=== PATIENT | male | born 1945 | race Caucasian/White ===

== ENCOUNTER 2019-08-12 08:07 | Emergency (ER) | payer MEDICAID, MEDICARE, OTHER ==
[~2019-08-12] VITALS: Ht 182.9 cm; Wt 109.6 kg
[2019-08-12] MEDS ORDERED: FLOM0.4C39 PO (08:14)
[2019-08-12] MEDS ORDERED: LIDOCAINE 2% 5ML JELLY UROJET TOP ONE (08:30)
[2019-08-12] MEDS ORDERED: ASPI81TA85 PO (09:13)
[2019-08-12 09:54] LABS: BASO % 0.2 % (0.0-1.0); HEMATOCRIT 43.1 % (42.0-52.0); HEMOGLOBIN 13.8 g/dl (13.5-17.5); LYMPH # 0.5 10^3/uL (1.5-5.0); LYMPH % 4.4 % (24.0-44.0); MEAN CORPUSCULAR HEMOGLOBIN 29.9 pg (27.0-33.0); MEAN CORPUSCULAR VOLUME 93.5 fl (80.0-96.0); MONO # 0.6 10^3/uL (0.0-0.8); MONO % 5.2 % (0.0-5.0); NEUTROPHILS # 9.7 10^3/uL (1.5-8.5); PLATELET COUNT, AUTOMATED 135 10^3/uL (150-450); RED BLOOD COUNT 4.61 10^6/uL (4.30-6.10); WHITE BLOOD COUNT 10.8 10^3/uL (4.0-10.0)
[2019-08-12 10:32] LABS: ALBUMIN 3.5 GM/DL (3.2-5.2); ALT/SGPT 23 U/L (12-78); BILIRUBIN,TOTAL 0.8 MG/DL (0.2-1.0); BLOOD UREA NITROGEN 17 MG/DL (7-18); CALCIUM LEVEL 8.4 MG/DL (8.8-10.2); CARBON DIOXIDE LEVEL 24 MEQ/L (21-32); CHLORIDE LEVEL 105 MEQ/L (98-107); CREATININE FOR GFR 0.73 MG/DL (0.70-1.30); GLOMERULAR FILTRATION RATE > 60.0 (>42); GLUCOSE, FASTING 104 MG/DL (70-100); POTASSIUM SERUM 4.2 MEQ/L (3.5-5.1); SODIUM LEVEL 137 MEQ/L (136-145); TOTAL PROTEIN 7.2 GM/DL (6.4-8.2)
[2019-08-12] MEDS ORDERED: ELIQ5TAB PO (11:00)
[2019-08-12] MEDS ORDERED: APIXABAN 5 MG TAB (ELIQUIS) PO ONE (11:15)
[2019-08-12 11:21] VITALS: BP 132/70
--- NOTE | 2019-08-12 12:30 | ECGEPIP ---
[facility] - ED Test Date: 2019-08-12 Pat Name: LEANNE TURK Department: Room: - Gender: Male Guest Relations Coordinator: : 1945 Requested By: ELLIOTT ROSA Order Number: [id number] Reading MD: Deborah Herndon Measurements Intervals [place] Rate: 88 P: [place]: 0 QRS: -8 QRSD: 99 T: -30 QT: 375 QTc: 455 Interpretive Statements ATRIAL FIBRILLATION INFERIOR MYOCARDIAL INFARCTION, OF INDETERMINATE AGE NSTTW abnormalities NO PRIOR Electronically Signed on 08-12-2019 12:30:02 EDT by Deborah Herndon
== END 2019-08-12 11:30 | disposition home or self-care (01) ==
LOC: M ED 08:07
DX: R33.9 Retention of urine, unspecified (principal); I48.91 Unspecified atrial fibrillation; Z91.19 Patient's noncompliance with other medical treatment and regimen; N40.1 Benign prostatic hyperplasia with lower urinary tract symptoms; N52.9 Male erectile dysfunction, unspecified; I10 Essential (primary) hypertension; E78.2 Mixed hyperlipidemia; Z95.5 Presence of coronary angioplasty implant and graft; Z88.8 Allergy status to other drugs, medicaments and biological substances; Z79.01 Long term (current) use of anticoagulants; Z79.899 Other long term (current) drug therapy

== ENCOUNTER → 2019-09-16 | Outpatient (REF) | payer OTHER ==
[~2019-09-16] MED LIST: ASPI81TA85 PO; CIDA500T2 PO; ELIQ5TAB PO; FLOM0.4C39 PO; SULF1TAB93 PO; VITA-199 PO; VITA500C24 PO
== END ==
LOC: M SMT 16:40
PROVIDERS: ATTEND Urology
DX: Z01.818 Encounter for other preprocedural examination (principal); R33.9 Retention of urine, unspecified

== ENCOUNTER → 2019-09-19 | Outpatient (CLI) | payer OTHER | LOC: M LABSMTC 10:39 | PROVIDERS: ATTEND Anesthesiology | DX: Z01.818 Encounter for other preprocedural examination (principal); Z11.59 Encounter for screening for other viral diseases; Z03.818 Encounter for observation for suspected exposure to other biological agents ruled out | CPT/HCPCS: C9803; U0003 ==

== ENCOUNTER 2019-09-22 09:00 | Day surgery (SDC) | payer OTHER ==
[~2019-09-22] VITALS: Ht 182.9 cm; Wt 107.5 kg
[~2019-09-22 09:00] MED LIST changes: -SULF1TAB93 PO; +ceFAZolin SOD 2 GM in IV 1 EA IV ONE
[2019-09-22] MEDS ORDERED: MIDAZOLAM INJ 2MG/2ML VIAL (J2250 PER 1MG) As Ordered ONE (09:28)
[2019-09-22] MEDS ORDERED: fentaNYL 250 MCG/5 ML INJECTION (J3010) As Ordered ONE (09:29)
[2019-09-22] MEDS ORDERED: ePHEDrine SULFATE 25 MG/5 ML(5MG/ML) SYRINGE As Ordered ONE (09:30)
[2019-09-22] MEDS ORDERED: KETOROLAC 60 MG/2 ML VIAL As Ordered ONE (09:30)
[2019-09-22] MEDS ORDERED: ONDANSETRON 4MG/2ML VIAL As Ordered ONE (09:30)
[2019-09-22] MEDS ORDERED: LIDOCAINE 2% 100MG/5ML SDV (FOR ANES.) As Ordered ONE (09:30)
[2019-09-22] MEDS ORDERED: SUGAMMADEX SODIUM 500 MG/5 ML VIAL (BRIDION) As Ordered ONE (09:30)
[2019-09-22] MEDS ORDERED: propofoL 200 MG/20 ML VIAL As Ordered ONE (09:30)
[2019-09-22] MEDS ORDERED: PHENYLephrine HCL 500 MCG/5 ML (100MCG/ML) SYRINGE (J2370) As Ordered ONE (09:30)
[2019-09-22] MEDS ORDERED: ROCURONIUM BROMIDE 50 MG/5 ML VIAL As Ordered ONE ×2 (09:30→11:38)
[2019-09-22] MEDS ORDERED: dexameTHASONE 4 MG/ML 1ML VIAL (J1100 PER 1MG) As Ordered ONE (09:30)
[2019-09-22] MEDS ORDERED: VANCOMYCIN HCL 1,000 MG, VIAL MATE ADAPTER 1 EACH in D5W 250 ML IV ONE (09:45)
[2019-09-22] MEDS ORDERED: GENTAMICIN 80 MG in IV 1 EA IV ONE (09:45)
[2019-09-22] MEDS ORDERED: SULF1TAB93 PO (10:04)
[2019-09-22] MEDS ORDERED: ACETAMINOPHEN 1000MG 100ML IV BTL (OFIRMEV) (J0131 PER 10MG) As Ordered ONE (10:55)
[2019-09-22] MEDS ORDERED: FUROSEMIDE 100MG/10ML VIAL (J1940) As Ordered ONE (13:08)
--- NOTE | 2019-09-22 13:36 | ROOPDOC ---
[facility] Report Of Operation Report of Operation DATE OF PROCEDURE: 09/22/19 PREPROCEDURE DIAGNOSIS: Benign prostatic hyperplasia. POSTPROCEDURE DIAGNOSIS: Benign prostatic hyperplasia. PROCEDURE: Cystoscopy, button transurethral electrovaporization of the prostate. SURGEON: Allegra Gonzalez MD [employer] OPERATOR: None. ANESTHESIA: General. OPERATIVE INDICATIONS: This is a 74-year-old male with benign prostatic hyperplasia and urinary retention who was brought to the operating room today for treatment. DESCRIPTION OF PROCEDURE: The patient was brought to the operating room and general anesthesia was induced. Prophylactic antibiotics were infused. He was placed in the dorsal lithotomy position and prepped and draped in the usual sterile fashion. At this point, I advanced the resectoscope into the urethra and into the bladder. Of note, the patient had bilobar benign prostatic hyperplasia. I made note of the location of both ureteral orifices, as well as the verumontanum. At this point, I began vaporizing hyperplastic tissue circumferentially at the bladder neck. I then vaporized hyperplastic tissue on both lateral lobes. I kept doing this until there was a clear channel established. Once there was a clear channel established, hemostasis was obtained using the coagulation current. Once satisfied with hemostasis, the resectoscope was removed and an 18-Tajik Rice catheter was inserted into the bladder. The balloon was filled with 15 mL of sterile water and then the catheter was connected to gravity drainage. This marked the conclusion of the procedure. The patient was taken out of the dorsal lithotomy position, awakened from anesthesia and transported to the recovery room in stable condition. Estimated blood loss:25 mL. Complications: None. Specimens: None. PLAN: The patient will followup in the clinic in approximately 1 week for catheter removal and a voiding trial. ALLEGRA GONZALEZ MD September 22, 2019 13:36
[2019-09-22] MEDS ORDERED: ONDANSETRON 4MG/2ML VIAL IV PRN (14:00)
[2019-09-22] MEDS ORDERED: LR 1,000 ML IV SCH (14:00)
[2019-09-22] MEDS ORDERED: ACETAMINOPHEN TAB 650MG DOSE (2X325MG) PO PRN (14:00)
[2019-09-22] MEDS ORDERED: fentaNYL 100 MCG/2 ML INJECTION (J3010) IV PRN (14:00)
[2019-09-22] MEDS ORDERED: oxyCODONE 5MG TAB PO PRN (14:00)
[2019-09-22 14:55] VITALS: BP 147/81
== END 2019-09-22 15:48 | disposition home or self-care (01) ==
LOC: M SDC 09:00
PROVIDERS: ATTEND Urology
DX: N40.1 Benign prostatic hyperplasia with lower urinary tract symptoms (principal); I48.91 Unspecified atrial fibrillation; I25.2 Old myocardial infarction; G47.30 Sleep apnea, unspecified; Z79.01 Long term (current) use of anticoagulants; Z79.899 Other long term (current) drug therapy; Z98.61 Coronary angioplasty status; Z88.8 Allergy status to other drugs, medicaments and biological substances
CPT/HCPCS: 52601; J0131; J1100; J1580; J1885; J1940; J2250; J2370; J2405; J3010; J3370

== ENCOUNTER 2020-09-20 07:13 | Emergency (ER) | payer OTHER ==
[~2020-09-20] VITALS: Ht 182.9 cm; Wt 106.7 kg
[~2020-09-20 07:13] MED LIST changes: -ASPI81TA85 PO; +ASPI81TA86 PO; +BACTDSTA PO; -ceFAZolin SOD 2 GM in IV 1 EA IV ONE
[2020-09-20 08:27] LABS: HEMATOCRIT 47.4 % (42.0-52.0); HEMOGLOBIN 15.4 g/dl (13.5-17.5); MEAN CORPUSCULAR HEMOGLOBIN 30.7 pg (27.0-33.0); MEAN CORPUSCULAR HGB CONC 32.5 g/dl (32.0-36.5); MEAN CORPUSCULAR VOLUME 94.4 fl (80.0-96.0); PLATELET COUNT, AUTOMATED 104 10^3/uL (150-450); RED BLOOD COUNT 5.02 10^6/uL (4.30-6.10); WHITE BLOOD COUNT 5.7 10^3/uL (4.0-10.0)
--- NOTE | 2020-09-20 08:37 | REP ---
INDICATION: cough, nausea. COMPARISON: None. FINDINGS: Supine and upright views of the abdomen show the intestinal gas pattern to be nonspecific. There are a few gas-filled loops of small bowel in the right upper quadrant. Gas and stool is seen throughout the colon within the rectosigmoid region. The organ silhouettes insofar as delineated appear unremarkable. No abdominal calcific densities are seen within the abdomen or pelvis. The accompanying single frontal view of the chest shows no free subdiaphragmatic air, cardiomegaly, infiltrates or effusions. IMPRESSION: Nonspecific intestinal gas pattern. Possible minimal small bowel ileus. <Electronically signed by Ventura Santacruz > 09/20/20 0808
[2020-09-20 08:50] LABS: ALBUMIN 2.9 GM/DL (3.2-5.2); ALT/SGPT 52 U/L (12-78); BILIRUBIN,DIRECT 0.3 MG/DL (0.0-0.2); BILIRUBIN,TOTAL 0.8 MG/DL (0.2-1.0); BLOOD UREA NITROGEN 25 MG/DL (7-18); CARBON DIOXIDE LEVEL 28 MEQ/L (21-32); CHLORIDE LEVEL 100 MEQ/L (98-107); CK-MB VALUE MASS 2.1 NG/ML (<3.6); CPK CREATINE PHOSPHOKINASE 90 U/L (39-308); CREATININE FOR GFR 1.07 MG/DL (0.70-1.30); GLOMERULAR FILTRATION RATE > 60.0 (>42); GLUCOSE, FASTING 102 MG/DL (70-100); MB/CK RELATIVE INDEX 2.33 (< OR =4); NT-PRO BNP 770 PG/ML (<125); POTASSIUM SERUM 4.7 MEQ/L (3.5-5.1); SODIUM LEVEL 135 MEQ/L (136-145); TOTAL PROTEIN 6.4 GM/DL (6.4-8.2); TROPONIN I < 0.02 NG/ML (< 0.10)
[2020-09-20 09:47] LABS: ATYPICAL LYMPH 2 % (0-5); BASOPHILS 1 % (0-1); LYMPHOCYTES 11 % (16-44); MONOCYTES 4 % (0-5); NEUTROPHILS 79 % (28-66)
[2020-09-20 09:48] LABS: ANISOCYTOSIS 1+; PLATELET ESTIMATE INCREASED (NORMAL)
--- NOTE | 2020-09-20 12:06 | REP ---
INDICATION: nausea, abdominal fullness ? ileus on xray. COMPARISON: None TECHNIQUE: Standard helical technique without the administration of intravenous or oral bowel preparatory contrast. FINDINGS: Limited evaluation of the liver shows a round 2.8 cm sized focal area of decreased density having near water density Hounsfield unit readings consistent with a simple cyst. The gallbladder, spleen, pancreas, are within normal limits. There are bilateral renal parapelvic cysts. In the left kidney there is a calcification which is of renovascular nature. There is no evidence of obstructive uropathy. There are no abnormal urinary bladder calcifications. Limited evaluation of the abdominal aorta and para-aortic regions show no gross abnormalities. There is no evidence of free fluid or free air. There are a few scattered nondilated fluid and gas-filled small bowel loops in no particular fashion. There is no intestinal obstruction. Bone window technique throughout the examination shows the osseous structures to be within normal limits for the patient's age. There are spinal an hip degenerative changes. IMPRESSION: 1. Simple hepatic cyst as described above. 2. Bilateral renal parapelvic cysts. 3. No evidence of acute intra-abdominal or intrapelvic disease. Findings as described above. <Electronically signed by Ventura Santacruz > 09/20/20 1215
--- NOTE | 2020-09-20 12:15 | REP ---
INDICATION: cough, basilar crackles. COMPARISON: Radiograph today. TECHNIQUE: CT chest performed without the use of intravenous contrast. Sagittal and coronal reconstruction images are performed. FINDINGS: Lungs: Mixed interstitial and alveolar ground-glass opacities are present peripherally, scattered throughout both lungs, more so in the posteroinferior aspect. Differential diagnosis would include inflammatory infiltrates and/or fibrosis. There is a 6 mm nodular opacity in the inferior right upper lobe, along the superior aspect of the minor fissure. There is a calcified granuloma in the right lower lobe. Mediastinum: No gross adenopathy. Elizabeth: No gross adenopathy. A few small calcified right hilar lymph nodes are present. Axilla: No gross adenopathy. Pleura: No effusion. Heart: Mildly enlarged. Thoracic aorta: No aneurysm. There is elevation of the right hemidiaphragm. Visualized osseous structures: There are degenerative changes of the spine without compression deformity. IMPRESSION: Mixed interstitial and alveolar ground-glass opacities peripherally bilaterally, more so inferiorly. Acuity cannot be ascertained. These could represent acute inflammatory infiltrates, possibly COVID pneumonia given the appearance and distribution. 6 mm nodular density in the inferior aspect of the right upper lobe along the minor fissure. Recommend follow-up CT in 6 months. <Electronically signed by Shahid Martines > 09/20/20 [id number]
[2020-09-20] MEDS ORDERED: ONDA4TAB6 PO (13:06)
[2020-09-20 14:29] VITALS: BP 120/71
--- NOTE | 2020-09-21 20:13 | ECGEPIP ---
[facility] - ED Test Date: 2020-09-20 Pat Name: LEANNE TURK Department: Room: - Gender: Male [employer] Warm Up: rs : 1945 Requested By: Gaston Cat Order Number: [id number] Reading MD: Deborah Herndon Measurements Intervals [place] Rate: 68 P: [place]: QRS: -8 QRSD: 96 T: -14 QT: 416 QTc: 442 Interpretive Statements Atrial fibrillation Inferior infarct , age undetermined NSTTW abnormalities decreased rate 08/12/19 Electronically Signed on 09-21-2020 20:13:05 EDT by Deborah Herndon
--- NOTE | 2020-09-24 11:32 | ED PDOC ---
Post-Departure Follow-Up ct chest faxed to idalmis [facility]olliday for fu Julia cMcain MD September 24, 2020 11:32
== END 2020-09-20 14:38 | disposition home or self-care (01) ==
LOC: M ED 07:13
DX: U07.1 COVID-19 (principal); J12.82 Pneumonia due to coronavirus disease 2019; Z79.01 Long term (current) use of anticoagulants; Z79.82 Long term (current) use of aspirin; Z79.899 Other long term (current) drug therapy; Z88.8 Allergy status to other drugs, medicaments and biological substances

== ENCOUNTER → 2021-06-10 | Outpatient (CLI) | payer MEDICARE, OTHER ==
[~2021-06-10] MED LIST changes: +ONDA4TAB6 PO
[2021-06-10 11:21] LABS: HEMATOCRIT 46.8 % (42.0-52.0); HEMOGLOBIN 14.7 g/dl (13.5-17.5); MEAN CORPUSCULAR HEMOGLOBIN 29.9 pg (27.0-33.0); MEAN CORPUSCULAR HGB CONC 31.4 g/dl (32.0-36.5); MEAN CORPUSCULAR VOLUME 95.1 fl (80.0-96.0); PLATELET COUNT, AUTOMATED 143 10^3/uL (150-450); RED BLOOD COUNT 4.92 10^6/uL (4.30-6.10); WHITE BLOOD COUNT 7.8 10^3/uL (4.0-10.0)
[2021-06-10 11:53] LABS: ALBUMIN 3.5 GM/DL (3.2-5.2); ALT/SGPT 33 U/L (12-78); BILIRUBIN,TOTAL 0.4 MG/DL (0.2-1.0); BLOOD UREA NITROGEN 27 MG/DL (7-18); CALCIUM LEVEL 8.8 MG/DL (8.8-10.2); CARBON DIOXIDE LEVEL 30 MEQ/L (21-32); CHLORIDE LEVEL 107 MEQ/L (98-107); CREATININE FOR GFR 1.08 MG/DL (0.70-1.30); GLOMERULAR FILTRATION RATE > 60.0 (>42); GLUCOSE, FASTING 93 MG/DL (70-100); NT-PRO BNP 1144 PG/ML (<450); POTASSIUM SERUM 4.7 MEQ/L (3.5-5.1); SODIUM LEVEL 140 MEQ/L (136-145); TOTAL PROTEIN 6.6 GM/DL (6.4-8.2)
== END ==
LOC: M LAB 10:49
PROVIDERS: ATTEND Physician Assistant
DX: R06.02 Shortness of breath (principal)

== ENCOUNTER → 2022-12-12 | Outpatient (CLI) | payer MEDICARE, OTHER | LOC: M PLAIMG 10:01 | PROVIDERS: ATTEND Nurse Practitioner Family | DX: R91.1 Solitary pulmonary nodule (principal) ==

== ENCOUNTER 2023-09-30 09:39 | Day surgery (SDC) | payer OTHER, MEDICARE ==
[~2023-09-30] VITALS: Ht 182.9 cm; Wt 118.0 kg
[~2023-09-30 09:39] MED LIST changes: +ATROPINE SULFATE 1% OPHTH SOLN 2ML BTL OD SCH; +ECOT81TA5 PO; +LIDOCAINE 3.5 % 1ML OPHTH TOPICAL GEL OU ONE; +OFLOXACIN 0.3 % (OCUFLOX) OPTH SOL 5ML OD ONE; +PHENYLEPHRINE 10% OPHTH SOL 5ML OD PRN; +PHENYLEPHRINE 2.5% OPHTH SOL 2ML OD SCH; +PRESCAP PO; +RA M500C PO; +TROPICAMIDE 1% OPHTH SOLN 15ML OD SCH
[2023-09-30] MEDS: LIDOCAINE 3.5 % 1ML OPHTH TOPICAL GEL OU ONE (10:50)
[2023-09-30] MEDS: ATROPINE SULFATE 1% OPHTH SOLN 2ML BTL OD SCH (11:04)
[2023-09-30] MEDS: TROPICAMIDE 1% OPHTH SOLN 15ML OD SCH (11:04)
[2023-09-30] MEDS: PHENYLEPHRINE 2.5% OPHTH SOL 2ML OD SCH (11:04)
[2023-09-30] MEDS: OFLOXACIN 0.3 % (OCUFLOX) OPTH SOL 5ML OD ONE (11:27)
[2023-09-30] MEDS ORDERED: MIDAZOLAM INJ 2MG/2ML VIAL As Ordered ONE (11:56)
[2023-09-30] MEDS ORDERED: fentaNYL 100 MCG/2 ML INJECTION As Ordered ONE (11:56)
[2023-09-30] MEDS: LIDOCAINE 1% SDV 5ML VIAL As Ordered ONE (12:17)
[2023-09-30] MEDS: BSS IRRIG/VANCO(10MG)/TOBRA(5MG)/EPINEPH(1:1000-0.5CC)500ML BAG-ORONLY As Ordered ONE (12:17)
[2023-09-30] MEDS: CEFUROXIME 1MG/0.1ML INTRACAMERAL INJ As Ordered ONE (12:20)
[2023-09-30] MEDS ORDERED: hydrALAZINE 20MG/ML 1ML VIAL As Ordered ONE (12:24)
[2023-09-30 13:05] VITALS: BP 139/66; TEMP 97.4; O2SAT 97
== END 2023-09-30 13:31 | disposition home or self-care (01) ==
LOC: M SDC 09:39
PROVIDERS: ATTEND Ophthalmology
DX: H25.11 Age-related nuclear cataract, right eye (principal); I10 Essential (primary) hypertension; G47.33 Obstructive sleep apnea (adult) (pediatric); N40.0 Benign prostatic hyperplasia without lower urinary tract symptoms; Z79.01 Long term (current) use of anticoagulants; Z79.899 Other long term (current) drug therapy; Z98.61 Coronary angioplasty status; I48.91 Unspecified atrial fibrillation; I25.2 Old myocardial infarction
CPT/HCPCS: 66984; 92015; J0360; J0697; J2250; J3010; V2788

== ENCOUNTER 2023-10-07 07:37 | Day surgery (SDC) | payer OTHER, MEDICARE ==
[~2023-10-07] VITALS: Ht 182.9 cm; Wt 118.1 kg
[~2023-10-07 07:37] MED LIST changes: -ATROPINE SULFATE 1% OPHTH SOLN 2ML BTL OD SCH; -LIDOCAINE 3.5 % 1ML OPHTH TOPICAL GEL OU ONE; +MIDAZOLAM INJ 2MG/2ML VIAL As Ordered ONE; -OFLOXACIN 0.3 % (OCUFLOX) OPTH SOL 5ML OD ONE; +ONDA-282 PO; -ONDA4TAB6 PO; -PHENYLEPHRINE 10% OPHTH SOL 5ML OD PRN; +PHENYLEPHRINE 10% OPHTH SOL 5ML OS PRN; -PHENYLEPHRINE 2.5% OPHTH SOL 2ML OD SCH; -TROPICAMIDE 1% OPHTH SOLN 15ML OD SCH; +fentaNYL 100 MCG/2 ML INJECTION As Ordered ONE
[2023-10-07] MEDS: ATROPINE SULFATE 1% OPHTH SOLN 2ML BTL OS SCH (08:31)
[2023-10-07] MEDS: OFLOXACIN 0.3 % (OCUFLOX) OPTH SOL 5ML OS ONE (08:31)
[2023-10-07] MEDS: TROPICAMIDE 1% OPHTH SOLN 15ML OS SCH (08:31)
[2023-10-07] MEDS: LIDOCAINE 3.5 % 1ML OPHTH TOPICAL GEL OU ONE (08:32)
[2023-10-07] MEDS: PHENYLEPHRINE 2.5% OPHTH SOL 2ML OS SCH (08:32)
[2023-10-07] MEDS: LIDOCAINE 1% SDV 5ML VIAL As Ordered ONE (09:25)
[2023-10-07] MEDS: BSS IRRIG/VANCO(10MG)/TOBRA(5MG)/EPINEPH(1:1000-0.5CC)500ML BAG-ORONLY As Ordered ONE (09:25)
[2023-10-07] MEDS: CEFUROXIME 1MG/0.1ML INTRACAMERAL INJ As Ordered ONE (09:26)
[2023-10-07 09:47] VITALS: BP 178/95; TEMP 97.3; O2SAT 97
== END 2023-10-07 10:03 | disposition home or self-care (01) ==
LOC: M SDC 07:37
PROVIDERS: ATTEND Ophthalmology
DX: H25.12 Age-related nuclear cataract, left eye (principal); I48.91 Unspecified atrial fibrillation; I25.2 Old myocardial infarction; I10 Essential (primary) hypertension; G47.30 Sleep apnea, unspecified; Z95.5 Presence of coronary angioplasty implant and graft; Z79.899 Other long term (current) drug therapy; Z79.01 Long term (current) use of anticoagulants; Z79.82 Long term (current) use of aspirin; Z88.8 Allergy status to other drugs, medicaments and biological substances
CPT/HCPCS: 66984; 92015; J0697; J2250; J3010; V2788

== ENCOUNTER 2023-11-25 13:36 | Day surgery (SDC) | payer MEDICARE, OTHER ==
[~2023-11-25] VITALS: Ht 182.9 cm; Wt 116.8 kg
[~2023-11-25 13:36] MED LIST changes: -MIDAZOLAM INJ 2MG/2ML VIAL As Ordered ONE; -fentaNYL 100 MCG/2 ML INJECTION As Ordered ONE
[2023-11-25] MEDS: OFLOXACIN 0.3 % (OCUFLOX) OPTH SOL 5ML OS ONE (14:05)
[2023-11-25] MEDS: PHENYLEPHRINE 2.5% OPHTH SOL 2ML OS SCH (14:15)
[2023-11-25] MEDS: TROPICAMIDE 1% OPHTH SOLN 15ML OS SCH (14:15)
[2023-11-25] MEDS: ATROPINE SULFATE 1% OPHTH SOLN 2ML BTL OS SCH (14:15)
[2023-11-25] MEDS: LIDOCAINE 3.5 % 1ML OPHTH TOPICAL GEL OU ONE (14:15)
[2023-11-25] MEDS ORDERED: MIDAZOLAM INJ 2MG/2ML VIAL As Ordered ONE (15:33)
[2023-11-25] MEDS ORDERED: fentaNYL 100 MCG/2 ML INJECTION As Ordered ONE (15:34)
[2023-11-25] MEDS: CEFUROXIME 1MG/0.1ML INTRACAMERAL INJ As Ordered ONE (16:22)
[2023-11-25] MEDS: DUOVISC (0.50ML VISCOAT/0.85ML PROVISC) OPHTH KIT As Ordered ONE (16:25)
[2023-11-25] MEDS: LIDOCAINE 1% SDV 5ML VIAL As Ordered ONE (16:31)
[2023-11-25 16:40] VITALS: BP 174/91; TEMP 97.4; O2SAT 97
== END 2023-11-25 16:50 | disposition home or self-care (01) ==
LOC: M SDC 13:36
PROVIDERS: ATTEND Ophthalmology
DX: T85.22XA Displacement of intraocular lens, initial encounter (principal); I48.91 Unspecified atrial fibrillation; Z98.61 Coronary angioplasty status; I25.10 Atherosclerotic heart disease of native coronary artery without angina pectoris; I25.2 Old myocardial infarction; G47.33 Obstructive sleep apnea (adult) (pediatric); Z79.01 Long term (current) use of anticoagulants; Z79.899 Other long term (current) drug therapy; Z88.8 Allergy status to other drugs, medicaments and biological substances
CPT/HCPCS: 66825; J0697; J2250; J3010

== ENCOUNTER → 2024-01-15 | Outpatient (REF) | payer OTHER ==
[~2024-01-15] MED LIST changes: -PHENYLEPHRINE 10% OPHTH SOL 5ML OS PRN
== END ==
LOC: M SFHCDERM 16:01
PROVIDERS: ATTEND Physician Assistant
DX: D48.9 Neoplasm of uncertain behavior, unspecified (principal)

== ENCOUNTER → 2024-01-26 | Outpatient (REF) | payer OTHER | LOC: M SFHCDERM 17:58 | PROVIDERS: ATTEND Physician Assistant | DX: L57.0 Actinic keratosis (principal) ==

== ENCOUNTER → 2024-02-09 | Outpatient (REF) | payer OTHER | LOC: M LAB REF 15:31 | PROVIDERS: ATTEND Surgery | DX: L72.3 Sebaceous cyst (principal) ==